=== PATIENT | female | born 1950 | race Caucasian/White ===

== ENCOUNTER → 2016-10-15 | Outpatient (CLI) | payer OTHER, MEDICARE | LOC: FIMAGING 08:58 | PROVIDERS: ATTEND Internal Medicine | DX: Z12.31 Encounter for screening mammogram for malignant neoplasm of breast (principal); Z80.3 Family history of malignant neoplasm of breast | CPT/HCPCS: G0202 ==

== ENCOUNTER → 2017-04-23 | Outpatient (CLI) | payer OTHER, MEDICARE | LOC: BMCIMAGING 11:47 | PROVIDERS: ATTEND Physician Assistant Medical | DX: Q65.89 Other specified congenital deformities of hip (principal); M54.5 Low back pain ==

== ENCOUNTER → 2018-01-15 | Outpatient (CLI) | payer OTHER, MEDICARE | LOC: FIMAGING 10:54 | PROVIDERS: ATTEND Internal Medicine | DX: Z12.31 Encounter for screening mammogram for malignant neoplasm of breast (principal); Z80.3 Family history of malignant neoplasm of breast ==